=== PATIENT | female | born 1955 | race American Indian/Alaskan Native ===

== ENCOUNTER 2020-02-13 04:51 | Emergency (ER) | payer OTHER ==
[2020-02-13] MEDS ORDERED: DOCUSATE SODIUM 100 MG CAP PO ONE (08:19)
[2020-02-13] MEDS ORDERED: LACTULOSE 20 GM/30 ML ORAL LIQD PO ONE (08:19)
[2020-02-13 08:20] LABS: Basophils % (Auto) 0.5 % (0.0-1.8); Eosinophils # (Auto) 0.1 K/mm3 (0.0-0.4); Eosinophils % (Auto) 1.1 % (0.0-4.3); Hematocrit 42.1 % (30.3-42.9); Hemoglobin 13.6 gm/dl (10.1-14.3); Lymphocytes # (Auto) 1.5 K/mm3 (1.2-5.4); Lymphocytes % (Auto) 18.9 % (13.4-35.0); Mean Corpuscular HGB Conc 32 % (30-34); Mean Corpuscular Volume 85 fl (79-97); Monocytes # (Auto) 0.5 K/mm3 (0.0-0.8); Monocytes % (Auto) 5.7 % (0.0-7.3); Platelet Count 240 K/mm3 (140-440); Red Blood Count 4.99 M/mm3 (3.65-5.03); Red Cell Distribution Width 13.4 % (13.2-15.2)
[2020-02-13 08:53] LABS: Bilirubin,Urine NEG (Negative); Blood,Urine NEG (Negative); Color,Urine Straw (Yellow); Mucus,Urine FEW /HPF; Protein,Urine <15 mg/dL mg/dL (Negative); Urobilinogen,Urine < 2.0 mg/dL (<2.0)
[2020-02-13 09:10] LABS: Alanine Aminotransferase 21 units/L (7-56); Albumin 4.8 g/dL (3.9-5); BUN/Creatinine Ratio 19; Blood Urea Nitrogen 15 mg/dL (7-17); Calcium 10.1 mg/dL (8.4-10.2); Hemolysis Index 14
--- NOTE | 2020-02-13 09:45 | Emergency Department Report ---
ED General Adult HPI - General Chief complaint: Abdominal Pain Stated complaint: BACK AND ABDOMINAL PAIN Time Seen by Provider: 02/13/20 08:11 Source: patient, EMS Mode of arrival: Ambulatory Limitations: No Limitations - History of Present Illness Initial comments: Patient is a 64-year-old female presents emergency room with complaints of constipation that began 4 days ago. She states that she has now been having lower abdominal pain and lower back pain. She states that she is still able to pass gas. She states that she is still tolerating p.o. intake and eating daily. She denies any nausea, vomiting, diarrhea, fever, urinary symptoms, hemato chezia, melena, hematemesis. She states that she tried to take Metamucil and all of oil. She denies any past medical history. No allergies medications. She states that she has abdominal surgical history of hysterectomy. She states that she had a colonoscopy approximately 2 to 3 years ago which she reports was normal. - Related Data Previous Rx's Medication Instructions Recorded Last Taken Type Docusate Sodium [Colace] 100 mg PO BID PRN #20 capsule 02/13/20 Unknown Rx Magnesium Citrate [Citrate of 300 ml PO NOW #1 bottle 02/13/20 Unknown Rx Magnesia] Allergies Allergy/AdvReac Type Severity Reaction Status Date / Time metronidazole [From Flagyl] Allergy Hives Verified 02/13/20 05:59 Sulfa (Sulfonamide Allergy Rash Verified 02/13/20 05:58 Antibiotics) sulfamethoxazole Allergy Hives Verified 02/13/20 05:59 [From Bactrim] Tetracyclines Allergy Hives Verified 02/13/20 05:58 trimethoprim [From Bactrim] Allergy Hives Verified 02/13/20 05:59 ED Review of Systems ROS: Stated complaint: BACK AND ABDOMINAL PAIN Other details as noted in HPI Comment: All other systems reviewed and negative ED Past Medical Hx - Past Medical History Previous Medical History?: No - Surgical History Past Surgical History?: Yes Additional Surgical History: Hysterectomy - Social History Smoking Status: Never Smoker - Medications Home Medications: Home Medications Medication Instructions Recorded Confirmed Last Taken Type Docusate Sodium [Colace] 100 mg PO BID PRN #20 capsule 02/13/20 Unknown Rx Magnesium Citrate [Citrate of 300 ml PO NOW #1 bottle 02/13/20 Unknown Rx Magnesia] ED Physical Exam - General Limitations: No Limitations General appearance: alert, in no apparent distress - Head Head exam: Present: atraumatic, normocephalic - Eye Eye exam: Present: normal appearance - ENT ENT exam: Present: mucous membranes moist - Respiratory Respiratory exam: Present: normal lung sounds bilaterally. Absent: respiratory distress, wheezes, rales, rhonchi, stridor, chest wall tenderness, accessory muscle use, decreased breath sounds, prolonged expiratory - Cardiovascular Cardiovascular Exam: Present: regular rate, normal rhythm, normal heart sounds. Absent: systolic murmur, diastolic murmur, rubs, gallop - GI/Abdominal GI/Abdominal exam: Present: soft, normal bowel sounds. Absent: distended, tenderness, guarding, rebound, rigid - Back Exam Back exam: Present: normal inspection, full ROM. Absent: CVA tenderness (R), CVA tenderness (L), paraspinal tenderness, vertebral tenderness - Neurological Exam Neurological exam: Present: alert, oriented X3 - Psychiatric Psychiatric exam: Present: normal affect, normal mood - Skin Skin exam: Present: warm, dry, intact ED Course Vital Signs 02/13/20 02/13/20 10:57 12:44 Temperature 98.5 F Pulse Rate 52 L Respiratory 16 Rate Blood Pressure 112/57 [Right] O2 Sat by Pulse 99 Oximetry ED Medical Decision Making - Lab Data Result diagrams: 02/13/20 08:11 02/13/20 08:11 Lab Results 02/13/20 02/13/20 02/13/20 Range/Units 08:11 08:11 08:33 WBC 8.1 (4.5-11.0) K/mm3 RBC 4.99 (3.65-5.03) M/mm3 Hgb 13.6 (10.1-14.3) gm/dl Hct 42.1 (30.3-42.9) % MCV 85 (79-97) fl MCH 27 L (28-32) pg MCHC 32 (30-34) % RDW 13.4 (13.2-15.2) % Plt Count 240 (140-440) K/mm3 Lymph % (Auto) 18.9 (13.4-35.0) % [place] % (Auto) 5.7 (0.0-7.3) % Eos % (Auto) 1.1 (0.0-4.3) % Baso % (Auto) 0.5 (0.0-1.8) % Lymph # (Auto) 1.5 (1.2-5.4) K/mm3 [place] # (Auto) 0.5 (0.0-0.8) K/mm3 Eos # (Auto) 0.1 (0.0-0.4) K/mm3 Baso # (Auto) 0.0 (0.0-0.1) K/mm3 Seg Neutrophils % 73.8 H (40.0-70.0) % Seg Neutrophils # 5.9 (1.8-7.7) K/mm3 Sodium 144 (137-145) mmol/L Potassium 4.5 (3.6-5.0) mmol/L Chloride 101.5 (98-107) mmol/L Carbon Dioxide 23 (22-30) mmol/L Anion Gap 24 mmol/L BUN 15 (7-17) mg/dL Creatinine 0.8 (0.6-1.2) mg/dL Estimated GFR > 60 ml/min BUN/Creatinine Ratio 19 % Glucose 100 (65-100) mg/dL Calcium 10.1 (8.4-10.2) mg/dL Total Bilirubin 0.30 (0.1-1.2) mg/dL AST 28 (5-40) units/L ALT 21 (7-56) units/L Alkaline Phosphatase 65 (35-129) units/L Total Protein 8.5 H (6.3-8.2) g/dL Albumin 4.8 (3.9-5) g/dL Albumin/Globulin Ratio 1.3 % Lipase 34 (13-60) units/L Urine Color Straw (Yellow) Urine Turbidity Clear (Clear) Urine pH 5.0 (5.0-7.0) Ur Specific [place] 1.013 (1.003-1.030) Urine Protein <15 mg/dl (Negative) mg/dL Urine Glucose (UA) Neg (Negative) mg/dL Urine Ketones Neg (Negative) mg/dL Urine Blood Neg (Negative) Urine Nitrite Neg (Negative) Urine Bilirubin Neg (Negative) Urine Urobilinogen < 2.0 (<2.0) mg/dL Ur Leukocyte Esterase Neg (Negative) Urine WBC (Auto) 2.0 (0.0-6.0) /HPF Urine RBC (Auto) 1.0 (0.0-6.0) /HPF U Epithel Cells (Auto) < 1.0 (0-13.0) /HPF Urine Mucus Few /HPF - Radiology Data Radiology results: report reviewed Ordering Physician: ALBERTO LAM Date of Service: 02/13/20 Procedure(s): XR abdomen 2V Accession Number(s): [id number] cc: ALBERTO LAM Fluoro Time In Minutes: ABDOMEN 2 VIEWS INDICATION / CLINICAL INFORMATION: constipation, abd pain. COMPARISON: None available. FINDINGS: TUBES / LINES: None. BOWEL GAS PATTERN: The colon contains a large amount stool. No suspicious bowel dilatation. FREE AIR / EXTRALUMINAL GAS: None seen. ADDITIONAL FINDINGS: No significant additional findings. CHEST: Visualized chest shows no significant abnormality. IMPRESSION: No acute abnormality of the abdomen. Large amount of stool throughout the colon. Signer Name: Justin Merritt MD Signed: 02/13/2020 9:32 AM Workstation Name: [email or web address] Transcribed By: [place] Dictated By: Justin Merritt MD Electronically Authenticated By: Justin Merritt MD Signed Date/Time: 02/13/20931 DD/ 1 TD/TT: - Medical Decision Making Patient is a 64-year-old female presents emergency room with complaints of constipation that began 4 days ago. She states that she has now been having lower abdominal pain and lower back pain. She states that she is still able to pass gas. She states that she is still tolerating p.o. intake and eating daily. She denies any nausea, vomiting, diarrhea, fever, urinary symptoms, hematochezia, melena, hematemesis. She states that she tried to take Metamucil and all of oil. She denies any past medical history. No allergies medications. She states that she has abdominal surgical history of hysterectomy. She states that she had a colonoscopy approximately 2 to 3 years ago which she reports was normal. Vitals are stable. On exam abdomen is soft, nondistended, nontender, no rigidity, no rebound, no peritoneal signs, normal bowel sounds, no CVA tenderness on exam, no spinal tenderness or paraspinal tenderness on exam. Labs are normal. UA is within normal limits. Abdominal x-ray No acute abnormality of the abdomen. Large amount of stool throughout the colon. Patient given lactulose, Colace, glycerin suppository but was still unable to have a bowel movement. Enema was performed by nurse and patient had a large nonbloody stool. On reexamination patient states that she feels much relief and she is ready to go home. Patient given prescription for Colace and magnesium citrate. Advised patient Please take medication as prescribed. Please use the magnesium citrate tomorrow (02/14/2020). Increase your water intake. Increase your fiber intake. Follow-up with a primary care doctor. Follow-up with a GI doctor. Return to emergency room immediately for any new or worsening symptoms. - Differential Diagnosis Constipation, obstruction, intussusception, ileus, mass Critical care attestation.: If time is entered above; I have spent that time in minutes in the direct care of this critically ill patient, excluding procedure time. ED Disposition Clinical Impression: Constipation Qualifiers: Constipation type: unspecified constipation type Qualified Code(s): K59.00 - Constipation, unspecified Abdominal pain Qualifiers: Abdominal location: upper abdomen, unspecified Qualified Code(s): R10.10 - Upper abdominal pain, unspecified Back pain Qualifiers: Back pain location: back pain in unspecified location Chronicity: acute Back pain laterality: unspecified Qualified Code(s): M54.9 - Dorsalgia, unspecified Disposition: DC-01 TO HOME OR SELFCARE Is pt being admited?: No Does the pt Need Aspirin: No Condition: Stable Instructions: Constipation (ED), High Fiber Diet (ED) Additional Instructions: Please take medication as prescribed. Please use the magnesium citrate tomorrow (02/14/2020). Increase your water intake. Increase your fiber intake. Follow-up with a primary care doctor. Follow-up with a GI doctor. Return to emergency room immediately for any new or worsening symptoms. Prescriptions: Magnesium Citrate [Citrate of Magnesia] 300 ml PO NOW #1 bottle Docusate Sodium [Colace] 100 mg PO BID PRN #20 capsule PRN Reason: Constipation Referrals: PRIMARY CARE, [Primary Care Provider] - 2-3 Days [facility] [Provider Group] - 2-3 Days Forms: Work/School Release Form(ED) Time of Disposition: 12:38 Print Language: HUNGARIAN
--- NOTE | 2020-02-13 09:57 | XRay Report ---
ABDOMEN 2 VIEWS INDICATION / CLINICAL INFORMATION: constipation, abd pain. COMPARISON: None available. FINDINGS: TUBES / LINES: None. BOWEL GAS PATTERN: The colon contains a large amount stool. No suspicious bowel dilatation. FREE AIR / EXTRALUMINAL GAS: None seen. ADDITIONAL FINDINGS: No significant additional findings. CHEST: Visualized chest shows no significant abnormality. IMPRESSION: No acute abnormality of the abdomen. Large amount of stool throughout the colon. Signer Name: Justin Merritt MD Signed: 02/13/2020 9:32 AM Workstation Name: [id number]
[2020-02-13] MEDS ORDERED: GLYCERIN ADULT 2 GRAM RECT SUPP PR SCH (10:00)
[2020-02-13 10:58] VITALS: BP 112/57
== END 2020-02-13 13:07 | disposition home or self-care (01) ==
LOC: ED 04:51
DX: K59.00 Constipation, unspecified (principal); R10.30 Lower abdominal pain, unspecified; M54.5 Low back pain; Z79.899 Other long term (current) drug therapy; Z88.8 Allergy status to other drugs, medicaments and biological substances; Z90.710 Acquired absence of both cervix and uterus; Z88.2 Allergy status to sulfonamides
CPT/HCPCS: 36415; 74019; 80053; 81001; 83690; 85025